=== PATIENT | male | born 1965 | race Caucasian/White ===

== ENCOUNTER → 2021-11-19 17:38 | Outpatient (CLI) | payer OTHER, SELFPAY ==
--- NOTE | ~2021-11-19 | XR_ITS ---
EXAMINATION: XR chest 2V DATE: 11/19/2021 17:56 INDICATION: Chest pain TECHNIQUE: PA and lateral views of the chest were obtained. COMPARISON: Chest radiograph dated 05/03/2019 FINDINGS: The lungs remain clear with no focal airspace opacities, pulmonary edema, pleural effusion or pneumot horax. The cardiomediastinal silhouette is normal. Mild thoracic spondylosis. IMPRESSION: 1. No acute cardiopulmonary disease. Reviewed, dictated and finalized at location A. [employer]
== END ==
PROVIDERS: PCP Family Medicine; Visit Provider Family Medicine
DX: R07.89 Other chest pain (principal); M47.814 Spondylosis without myelopathy or radiculopathy, thoracic region
CPT/HCPCS: 71046

== ENCOUNTER 2022-03-05 00:09 | Day surgery (SDC) | payer OTHER, SELFPAY ==
[2022-01-30 11:53] VITALS: BMI 23.7
[2022-02-14 14:14] VITALS: BMI 23.7
--- NOTE | 2022-02-14 14:17 | PC.NURSE ---
Rescheduled date and time reviewed. Colonoscopy 03/05/22 at 08:00, arrive at 06:30. Patient verbalizes understanding. Medications and health status without changes. Pre-procedure bowel prep, npo and beta tamika reviewed.
[2022-03-05 06:41] VITALS: BP 127/87; PULSE 69; RESP 18; TEMP 36.8; O2SAT 100
[2022-03-05] MEDS: LACTATED RINGERS 1,000 ML 150 ML IV CONT (06:51)
--- NOTE | 2022-03-05 07:19 | WPDANESEPPF ---
Anes - Initial Pre Proc Eval Procedure: Operation Date: 03/05/22 08:00 Proposed Procedures p Screening Colonoscopy - Bill Washington MD Date/Time: 03/05/22 07:19 Surgeon: Bill Washington MD Pre Op Diagnosis: hx of colon polyps Patient Data Age: 57 Gender: M Height: 1.78 m Weight: 73.9 kg Last Vital Signs Temp 36.8 C 03/05/22 06:41 Pulse 69 03/05/22 06:41 Resp 18 03/05/22 06:41 BP 127/87 03/05/22 06:41 Pulse Ox 100 03/05/22 06:41 O2 Del Method Room Air 03/05/22 06:41 Allergies Allergy/AdvReac Type Severity Reaction Status Date / Time Sulfa (Sulfonamide Allergy Unknown Dermatitis Verified 03/05/22 06:39 Antibiotics) Home Medications Medication Instructions Recorded Confirmed Type cyanocobalamin (vitamin B-12) 1,000 mcg PO DAILY 04/27/20 03/05/22 History 1,000 mcg tablet fluticasone propionate 50 1 spray intranasal BID #54.6 mL 01/29/21 03/05/22 Rx mcg/actuation nasal spray,suspension (Allergy Relief (fluticasone)) amlodipine 10 mg tablet 10 mg PO DAILY #90 tabs 05/14/21 03/05/22 Rx metoprolol succinate 50 mg 50 mg PO DAILY #90 tabs 10/19/21 03/05/22 Rx tablet,extended release 24 hr amitriptyline 10 mg tablet 10 mg PO QHS #30 tabs 11/28/21 03/05/22 Rx ascorbic acid (vitamin C) 500 mg 500 mg PO DAILY 01/30/22 03/05/22 History tablet cholecalciferol (vitamin D3) 25 25 mcg PO DAILY 01/30/22 03/05/22 History mcg (1,000 unit) tablet (Vitamin D3) Patient hx anesthesia problems: none Family hx anesthesia problems: none Results Review: All pre-operative results and documents have been reviewed as part of the pre-operative evaluation. [facility] Past Medical History Medical History Abnormal fasting glucose fasting glucose 103 with hemoglobin A1c 4.8 on 05/15/2021 Acute non-recurrent maxillary sinusitis Atypical chest pain Chest x-ray normal on 11/19/2021 BMI 23.0-23.9, adult Dyshidrotic eczema Encounter for prostate cancer screening PSA 1.1 on 05/15/2021 Encounter for wellness examination in adult Exposure to COVID-19 virus Hemorrhoid Osteoarthritis involving multiple joints on both sides of body Proctalgia improved with epidural for lumbar radiculitis Thoracic radiculitis (~09/2021) intermittent bilateral thoracic radiculitis to the anterior lower ribs Tobacco use occasional cigar Vitamin B12 deficiency anemia Vitamin B12 849 on 05/15/2021 Family History Family History Mother Patient's mother is in good health Family history of malignant neoplasm of urinary bladder Grandparent Family history of cardiovascular disease Cerebrovascular accident, Onset Age: 52 Family history of congestive heart failure Father Family history of malignant neoplasm Social History Social History Smoking status: Former smoker Tobacco type: cigars Additional smoking assessment comments: Occasional cigar Alcohol intake: current Drinks per week: 12 Alcohol use details: beer Substance use: never Substance use type: does not use Living arrangements: with family Spiritual care concerns: No Anes - Eval Final PreProcedure Day of Procedure 03/05/22 07:19 Patient weight: normal Heart: regular rate and rhythm Lungs: clear to auscultation Airway: Mallampati scale class II Neurological: alert and oriented Last oral intake: >/= 8 hours ASA classification: II Emergent: no Anesthesia type and monitoring: general GIVS and standard monitoring Results Review: All pre-operative results and documents have been reviewed as part of the pre-operative evaluation. Informed Consent: The patient's anesthetic plan and its attendant risks and benefits were discussed with the patient/family/POA. Questions were solicited and answers provided to the satisfaction of the patient/family/POA
--- NOTE | 2022-03-05 07:21 | PM.IMHP ---
H&P: HPI History of Present Illness Date/Time: 03/05/22 07:21 Chief Complaint: History of colon polyps. Narrative: This is a 57-year-old white male patient who presents for screening colonoscopy. Patient has a history of adenomatous colon polyp removed from the colon at time of last endoscopy in 2017. His current weight appetite and bowel movements are normal. He denies abdominal pain. Patient has had no bleeding. Family history is noncontributory. Patient presents today for neoplasia screening colonoscopy. Review of Systems Review of Systems: Review of systems noncontributory. [facility] Past Medical History Medical History Abnormal fasting glucose fasting glucose 103 with hemoglobin A1c 4.8 on 05/15/2021 Acute non-recurrent maxillary sinusitis Atypical chest pain Chest x-ray normal on 11/19/2021 BMI 23.0-23.9, adult Dyshidrotic eczema Encounter for prostate cancer screening PSA 1.1 on 05/15/2021 Encounter for wellness examination in adult Exposure to COVID-19 virus Hemorrhoid Osteoarthritis involving multiple joints on both sides of body Proctalgia improved with epidural for lumbar radiculitis Thoracic radiculitis (~09/2021) intermittent bilateral thoracic radiculitis to the anterior lower ribs Tobacco use occasional cigar Vitamin B12 deficiency anemia Vitamin B12 849 on 05/15/2021 Family History Family History Mother Patient's mother is in good health Family history of malignant neoplasm of urinary bladder Grandparent Family history of cardiovascular disease Cerebrovascular accident, Onset Age: 52 Family history of congestive heart failure Father Family history of malignant neoplasm Social History Social History Smoking status: Former smoker Tobacco type: cigars Additional smoking assessment comments: Occasional cigar Alcohol intake: current Drinks per week: 12 Alcohol use details: beer Substance use: never Substance use type: does not use Living arrangements: with family Spiritual care concerns: No Meds Home Medications and Allergies Home Medications Medication Instructions Recorded Confirmed Type cyanocobalamin (vitamin B-12) 1,000 mcg PO DAILY 04/27/20 03/05/22 History 1,000 mcg tablet fluticasone propionate 50 1 spray intranasal BID #54.6 mL 01/29/21 03/05/22 Rx mcg/actuation nasal spray,suspension (Allergy Relief (fluticasone)) amlodipine 10 mg tablet 10 mg PO DAILY #90 tabs 05/14/21 03/05/22 Rx metoprolol succinate 50 mg 50 mg PO DAILY #90 tabs 10/19/21 03/05/22 Rx tablet,extended release 24 hr amitriptyline 10 mg tablet 10 mg PO QHS #30 tabs 11/28/21 03/05/22 Rx ascorbic acid (vitamin C) 500 mg 500 mg PO DAILY 01/30/22 03/05/22 History tablet cholecalciferol (vitamin D3) 25 25 mcg PO DAILY 01/30/22 03/05/22 History mcg (1,000 unit) tablet (Vitamin D3) Allergies Allergy/AdvReac Type Severity Reaction Status Date / Time Sulfa (Sulfonamide Allergy Unknown Dermatitis Verified 03/05/22 06:39 Antibiotics) Vital Signs Vital Signs - 24 hr 03/05/22 06:41 Temperature 98.2 F Pulse Rate 69 Respiratory Rate 18 Blood Pressure 127/87 Pulse Oximetry 100 Oxygen Delivery Room Air Exam Narrative: Physical exam reveals patient to be alert. Vital signs stable. HEENT exam is unremarkable. Patient is anicteric. Lungs are clear to auscultation and percussion. Heart is without murmur or extra sounds. Abdominal exam bowel sounds are present soft nontender with no organomegaly. Digital external rectal exam is normal. Assessment and Plan Assessment and plan (1) History of colon polyps: Code(s): Z86.010 - Personal history of colonic polyps Status: Acute Assessment and Plan: Patient was found to have adenomatous colon polyp at lexy
[2022-03-05 08:17] VITALS: BP 118/82; PULSE 67; RESP 19; O2SAT 97
[2022-03-05 08:27] VITALS: BP 117/83; PULSE 73; RESP 19; O2SAT 99
[2022-03-05 08:37] VITALS: BP 125/87; PULSE 61; RESP 18; O2SAT 98
== END 2022-03-05 08:42 | disposition home or self-care (01) ==
PROVIDERS: PCP Family Medicine; Visit Provider Internal Medicine Gastroenterology
PROC: 0DJD8ZZ Inspection of Lower Intestinal Tract, Via Natural or Artificial Opening Endoscopic (ICD-10-PCS; CPT 45378; principal; 2022-03-05 08:00)
DX: Z12.11 Encounter for screening for malignant neoplasm of colon (principal); D12.3 Benign neoplasm of transverse colon; K63.5 Polyp of colon; K64.8 Other hemorrhoids; D51.3 Other dietary vitamin B12 deficiency anemia; M19.90 Unspecified osteoarthritis, unspecified site; Z72.0 Tobacco use
CPT/HCPCS: 45385; 88305; J2704; J7120